=== PATIENT | male | born 1960 | race Caucasian/White ===

== ENCOUNTER 2016-09-09 20:06 | Emergency (ER) | payer MEDICARE, OTHER ==
[2016-09-09 20:16] VITALS: BP 164/99; PULSE 108; RESP 18; TEMP 98.4
[2016-09-09] MEDS ORDERED: SODIUM CHLORIDE 0.9% 500 ML IV STA (20:20)
[2016-09-09] MEDS ORDERED: RX INFO: IV CONTRAST WAS GIVEN 1 EACH MISC MISCELLANE PRN (20:21)
--- NOTE | 2016-09-09 20:42 | ED ---
General Adult HPI - General Chief complaint: Shortness of Breath Stated complaint: Coughing Up Blood x 2 days Hx PE Time Seen by Provider: 09/09/16 20:09 Source: patient, RN notes reviewed Mode of arrival: ambulatory Limitations: no limitations - History of Present Illness Initial comments: 56-year-old male presents emergency Department chief complaint hemoptysis. Patient states that he's been coughing up blood over the last 2 days. Patient states she's been sick for last 3-4 days. Patient states is concerned as he has a history of PE and he states he is currently taking warfarin. Patient states that he's had large globs of bright red blood. Patient states he has no pain associated. Patient denies any history of liver disease. Patient states he does occasionally have some shortness of breath. Patient has fever, chills, headache or dizziness. Denies any chest pain or palpitations. - Related Data Home Medications Medication Instructions Recorded Confirmed traMADol HCl [Ultram] 50 mg PO TID PRN 03/20/14 09/09/16 Warfarin Sodium [Coumadin] 6 mg PO DAILY 09/09/16 09/09/16 Previous Rx's Medication Instructions Recorded Azithromycin [Zithromax Z-pack] 0 mg PO DIRECTED #1 pack 09/09/16 Allergies Allergy/AdvReac Type Severity Reaction Status Date / Time codeine AdvReac Unknown Verified 09/09/16 20:23 Review of Systems ROS Statement: Those systems with pertinent positive or pertinent negative responses have been documented in the HPI. ROS Other: All systems not noted in ROS Statement are negative. Past Medical History Past Medical History: Deep Vein Thrombosis (DVT), Rheumatoid Arthritis (RA) Additional Past Medical History / Comment(s): PE History of Any Multi-Drug Resistant Organisms: None Reported Past Surgical History: No Surgical Hx Reported Past Psychological History: No Psychological Hx Reported Smoking Status: Current every day smoker Past Alcohol Use History: None Reported Past Drug Use History: Marijuana General Exam Limitations: no limitations General appearance: alert, in no apparent distress Head exam: Present: atraumatic, normocephalic, normal inspection Eye exam: Present: normal appearance, PERRL, EOMI. Absent: scleral icterus, conjunctival injection, periorbital swelling ENT exam: Present: normal exam, mucous membranes moist Neck exam: Present: normal inspection, full ROM. Absent: tenderness, meningismus, lymphadenopathy Respiratory exam: Present: normal lung sounds bilaterally. Absent: respiratory distress, wheezes, rales, rhonchi, stridor Cardiovascular Exam: Present: normal rhythm, tachycardia, normal heart sounds. Absent: systolic murmur, diastolic murmur, rubs, gallop, clicks GI/Abdominal exam: Present: soft, normal bowel sounds. Absent: distended, tenderness, guarding, rebound, rigid Course Vital Signs 09/09/16 20:14 Temperature 98.4 F Pulse Rate 108 H Respiratory 18 Rate Blood Pressure 164/99 O2 Sat by Pulse 99 Oximetry EKG Findings - EKG Comments: EKG Findings:: EKG performed at 21:49 normal sinus rhythm with sinus arrhythmia , rate of 73. Interval 136, QRS duration 70 QT/QTC 364/401 Medical Decision Making - Medical Decision Making 56-year-old male presented for hemoptysis. Patient had muscle episodes of large blood clots. I did update the patient lab results which showed INR 5.4. Patient also updated on CT results which shows left lower lobe pneumonia with mucous plug. I did recommend patient be admitted to the hospital for further monitoring, pulmonary evaluation. Patient refuses to stay. Patient was signing out AGAINST MEDICAL ADVICE. He will be given vitamin K, azithromycin prior discharge. Patient was advised to hold Coumadin and recheck with primary care physician in 24 hours. - Lab Data Result diagrams: 09/09/16 20:40 09/09/16 20:40 Lab Results 09/09/16 09/09/16 09/09/16 Range/Units 20:40 20:40 20:40 WBC 7.8 (3.8-10.6) k/uL RBC 4.86 (4.30-5.90) m/uL Hgb 15.0 (13.0-17.5) gm/dL Hct 43.8 (39.0-53.0) % MCV 90.1 (80.0-100.0) fL MCH 30.9 (25.0-35.0) pg MCHC 34.3 (31.0-37.0) g/dL RDW 13.2 (11.5-15.5) % Plt Count 242 (150-450) k/uL Neutrophils % 53 % Lymphocytes % 37 % Monocytes % 7 % Eosinophils % 2 % Basophils % 1 % Neutrophils # 4.1 (1.3-7.7) k/uL Lymphocytes # 2.9 (1.0-4.8) k/uL Monocytes # 0.5 (0-1.0) k/uL Eosinophils # 0.1 (0-0.7) k/uL Basophils # 0.1 (0-0.2) k/uL PT (9.0-12.0) sec INR (<1.1) APTT (22.0-30.0) sec Sodium 141 (137-145) mmol/L Potassium 3.8 (3.5-5.1) mmol/L Chloride 103 (98-107) mmol/L Carbon Dioxide 26 (22-30) mmol/L Anion Gap 12 mmol/L BUN 19 (9-20) mg/dL Creatinine 1.07 (0.66-1.25) mg/dL Est GFR (MDRD) Af Amer >60 (>60 ml/min/1.73 sqM) Est GFR (MDRD) Non-Af >60 (>60 ml/min/1.73 sqM) Glucose 138 H (74-99) mg/dL Calcium 9.5 (8.4-10.2) mg/dL Magnesium 1.9 (1.6-2.3) mg/dL Total Bilirubin 0.4 (0.2-1.3) mg/dL AST 21 (17-59) U/L ALT 24 (21-72) U/L Alkaline Phosphatase 104 (38-126) U/L Total Creatine Kinase 126 (55-170) U/L CK-MB (CK-2) 0.9 (0.0-2.4) ng/mL CK-MB (CK-2) Rel Index 0.7 Troponin I <0.012 (0.000-0.034) ng/mL Total Protein 7.2 (6.3-8.2) g/dL Albumin 4.2 (3.5-5.0) g/dL 09/09/16 Range/Units 20:40 WBC (3.8-10.6) k/uL RBC (4.30-5.90) m/uL Hgb (13.0-17.5) gm/dL Hct (39.0-53.0) % MCV (80.0-100.0) fL MCH (25.0-35.0) pg MCHC (31.0-37.0) g/dL RDW (11.5-15.5) % Plt Count (150-450) k/uL Neutrophils % % Lymphocytes % % Monocytes % % Eosinophils % % Basophils % % Neutrophils # (1.3-7.7) k/uL Lymphocytes # (1.0-4.8) k/uL Monocytes # (0-1.0) k/uL Eosinophils # (0-0.7) k/uL Basophils # (0-0.2) k/uL PT 57.7 H (9.0-12.0) sec INR 5.7 H* (<1.1) APTT 62.1 H (22.0-30.0) sec Sodium (137-145) mmol/L Potassium (3.5-5.1) mmol/L Chloride (98-107) mmol/L Carbon Dioxide (22-30) mmol/L Anion Gap mmol/L BUN (9-20) mg/dL Creatinine (0.66-1.25) mg/dL Est GFR (MDRD) Af Amer (>60 ml/min/1.73 sqM) Est GFR (MDRD) Non-Af (>60 ml/min/1.73 sqM) Glucose (74-99) mg/dL Calcium (8.4-10.2) mg/dL Magnesium (1.6-2.3) mg/dL Total Bilirubin (0.2-1.3) mg/dL AST (17-59) U/L ALT (21-72) U/L Alkaline Phosphatase (38-126) U/L Total Creatine Kinase (55-170) U/L CK-MB (CK-2) (0.0-2.4) ng/mL CK-MB (CK-2) Rel Index Troponin I (0.000-0.034) ng/mL Total Protein (6.3-8.2) g/dL Albumin (3.5-5.0) g/dL Disposition Clinical Impression: Pneumonia, Cough with hemoptysis Disposition: Left Against Medical Advice Condition: Stable Instructions: Hemoptysis (ED) Additional Instructions: Please return to the Emergency Department if symptoms worsen or any other concerns. Prescriptions: Azithromycin [Zithromax Z-pack] 0 mg PO DIRECTED #1 pack Time of Disposition: 22:54
[2016-09-09 20:52] LABS: Basophils # (A) 0.1 k/uL (0-0.2); Basophils % (A) 1 %; CH 31.6; CHCM 35.2; Eosinophils # (A) 0.1 k/uL (0-0.7); Eosinophils % (A) 2 %; HCT 43.8 % (39.0-53.0); HDW 2.59; Luc # (Auto) 0.15; Luc % (Auto) 2; Lymphocytes # (A) 2.9 k/uL (1.0-4.8); Lymphocytes % (A) 37 %; MCH 30.9 pg (25.0-35.0); MCHC 34.3 g/dL (31.0-37.0); MCV 90.1 fL (80.0-100.0); Mean Platelet Volume 8.2; Monocytes # (A) 0.5 k/uL (0-1.0); Monocytes % (A) 7 %; Neutrophils # (A) 4.1 k/uL (1.3-7.7); Neutrophils % (A) 53 %; RBC 4.86 m/uL (4.30-5.90); RDW 13.2 % (11.5-15.5); WBC 7.8 k/uL (3.8-10.6); WBC (Perox) 7.85
[2016-09-09 21:04] LABS: Prothrombin Time 57.7 sec (9.0-12.0)
[2016-09-09 21:06] LABS: Creatine Kinase 126 U/L (55-170)
[2016-09-09 21:08] LABS: INR 5.7 (<1.1); Partial Thromboplastin Time 62.1 sec (22.0-30.0)
[2016-09-09 21:17] LABS: ALT 24 U/L (21-72); AST 21 U/L (17-59); Alkaline Phosphatase 104 U/L (38-126); Anion Gap 12 mmol/L; Blood Urea Nitrogen 19 mg/dL (9-20); Calcium 9.5 mg/dL (8.4-10.2); Carbon Dioxide 26 mmol/L (22-30); Chloride 103 mmol/L (98-107); Glucose 138 mg/dL (74-99); Magnesium 1.9 mg/dL (1.6-2.3); Non-African American GFR(MDRD) >60 (>60 ml/min/1.73 sqM); Potassium 3.8 mmol/L (3.5-5.1); Sodium 141 mmol/L (137-145); Total Bilirubin 0.4 mg/dL (0.2-1.3); Total Protein 7.2 g/dL (6.3-8.2)
[2016-09-09 21:19] LABS: Creatine Kinase MB 0.9 ng/mL (0.0-2.4); Troponin I <0.012 ng/mL (0.000-0.034)
--- NOTE | 2016-09-09 21:21 | XR ---
EXAMINATION TYPE: XR chest 2V DATE OF EXAM: 09/09/2016 8:53 PM COMPARISON: 06/09/2013 HISTORY: Hemoptysis with dyspnea TECHNIQUE: Frontal and lateral views of the chest are obtained. FINDINGS: The lungs are predominantly clear and well expanded bilaterally. When comparison is made w ith a 2012 study, the lateral view shows increased density in the infrahilar position posteriorly. Th e left hilum is also a bit more full than the prior study, the this is a subtle difference. Notwithst anding, given the hemoptysis and that the relative lack of radiographic findings, further characteriz ation with CT is suggested. The pleural spaces are negative. The cardiac silhouette is not enlarged. Bones and soft tissues are u nremarkable. IMPRESSION: NO DEFINITE ACUTE PROCESS. HOWEVER, THE LATERAL VIEW SHOWS MARKED PROMINENT INFRAHILAR ATTENUATION PO STERIORLY. THEREFORE, WOULD SUGGEST NONURGENT CONTRAST CT CHEST CHARACTERIZATION.
--- NOTE | 2016-09-09 22:18 | CT ---
EXAMINATION TYPE: CT angio chest DATE OF EXAM: 09/09/2016 9:29 PM COMPARISON: NONE HISTORY: Shortness of breath with hemoptysis and history of pulmonary embolism CT DLP: 258.9 mGycm Automated exposure control for dose reduction was used. CONTRAST: CTA scan of the thorax is performed with IV Contrast, patient injected with 100 mL of Omnipaque 350, pulmonary embolism protocol. MIP images are created and reviewed. 3D reconstructed images are creat ed on an independent workstation and reviewed. FINDINGS: Thoracic aorta appears intact with no sign of aneurysm or dissection. There is no mediastinal adenopa thy. There are no hilar masses. Heart size is normal. There is no pericardial effusion. I see no filling defects in the pulmonary arteries. There is a mild reticular infiltrate posterior to the right pulmonary hilum. There is some bronchial thickening and mucous in the right lower lobe. Th ere is no pleural effusion. The bony thorax appears intact. IMPRESSION: NO EVIDENCE OF PULMONARY EMBOLISM. MILD INFILTRATE WITH MUCOUS PLUGGING AND BRONCHIAL WALL THICKENING IN THE RIGHT LOWER LOBE
[2016-09-09] MEDS ORDERED: PHYTONADIONE ORAL 5 MG/5 ML ORAL.SYRG PO STA (22:37)
[2016-09-09] MEDS ORDERED: AZITHROMYCIN 250 MG TAB PO STA (22:54)
== END 2016-09-09 23:13 | disposition left against medical advice (07) ==
LOC: EC 20:06
DX: J18.9 Pneumonia, unspecified organism (principal); R04.2 Hemoptysis; T17.890A Other foreign object in other parts of respiratory tract causing asphyxiation, initial encounter; F17.200 Nicotine dependence, unspecified, uncomplicated; Z88.5 Allergy status to narcotic agent; Z79.01 Long term (current) use of anticoagulants; Z86.718 Personal history of other venous thrombosis and embolism
CPT/HCPCS: 99285; 36415; 93005; 80053; 82550; 82553; 83735; 84484; 85025; 85610; 85730; 71020; 71275; Q9967

== ENCOUNTER 2023-02-09 12:21 | Emergency (ER) | payer MEDICARE ==
[2023-02-09 12:50] VITALS: BP 115/76; PULSE 86; RESP 18; TEMP 98.2
--- NOTE | 2023-02-09 14:36 | ED ---
General Adult HPI - General Chief complaint: Recheck/Abnormal Lab/Rx Stated complaint: Feed Tube Issues - fall out Time Seen by Provider: 02/09/23 12:53 Source: patient, family, RN notes reviewed Mode of arrival: wheelchair Limitations: no limitations - History of Present Illness Initial comments: 62-year-old male presents emergency Department with chief complaint of needing feeding tubes in place. Patient states that his feeding tube for the night. Patient states his fourth emesis happened. Patient states he is followed by [facility] for his esophageal cancer. He states that he does not have a PEG tube. Denies any other associated complaints. - Related Data Home Medications Medication Instructions Recorded Confirmed traMADol HCl [Ultram] 50 mg PO TID PRN 03/20/14 09/09/16 Warfarin Sodium [Coumadin] 6 mg PO DAILY 09/09/16 09/09/16 Previous Rx's Medication Instructions Recorded Azithromycin [Zithromax Z-pack (6 0 mg PO DIRECTED #1 pack 09/09/16 tabs)] Allergies Allergy/AdvReac Type Severity Reaction Status Date / Time codeine AdvReac Unknown Verified 02/09/23 12:50 Review of Systems ROS Statement: Those systems with pertinent positive or pertinent negative responses have been documented in the HPI. ROS Other: All systems not noted in ROS Statement are negative. Past Medical History Past Medical History: Deep Vein Thrombosis (DVT), Rheumatoid Arthritis (RA) Additional Past Medical History / Comment(s): PE. Canbcer head and neck, pt recieving chemo and radiation History of Any Multi-Drug Resistant Organisms: None Reported Past Surgical History: No Surgical Hx Reported Past Psychological History: No Psychological Hx Reported Smoking Status: Former smoker Past Alcohol Use History: None Reported Past Drug Use History: Marijuana General Exam General appearance: alert, in no apparent distress Head exam: Present: atraumatic, normocephalic, normal inspection Eye exam: Present: normal appearance, PERRL, EOMI. Absent: scleral icterus, conjunctival injection, periorbital swelling Respiratory exam: Present: normal lung sounds bilaterally. Absent: respiratory distress, wheezes, rales, rhonchi, stridor Cardiovascular Exam: Present: regular rate, normal rhythm, normal heart sounds. Absent: systolic murmur, diastolic murmur, rubs, gallop, clicks GI/Abdominal exam: Present: soft, normal bowel sounds. Absent: distended, tenderness, guarding, rebound, rigid Course Vital Signs 02/09/23 02/09/23 12:45 15:31 Temperature 98.2 F Pulse Rate 86 Respiratory 18 18 Rate Blood Pressure 115/76 O2 Sat by Pulse 97 Oximetry Medical Decision Making - Medical Decision Making Was pt. sent in by a medical professional or institution (KALE Espinoza, HOG TRADER, urgent care, hospital, or prison...) When possible be specific @ -No Did you speak to anyone other than the patient for history (EMS, parent, family, police, friend...)? What history was obtained from this source @ -No Did you review nursing and triage notes (agree or disagree)? Why? @ -I reviewed and agree with nursing and triage notes Were old charts reviewed (outside hosp., previous admission, EMS record, old EKG, old radiological studies, urgent care reports/EKG's, prison records)? Report findings @ -No old charts were reviewed Differential Diagnosis (chest pain, altered mental status, abdominal pain women, abdominal pain men, vaginal bleeding, weakness, fever, dyspnea, syncope, headache, dizziness, GI bleed, back pain, seizure, CVA, palpatations, mental health, musculoskeletal)? @ -Feeding tube displacement EKG interpreted by me (3pts min.). @ -As above X-rays interpreted by me (1pt min.). @ -X-ray shows intact feeding tube in correct position CT interpreted by me (1pt min.). @ -None done U/S interpreted by me (1pt. min.). @ -None done What testing was considered but not performed or refused? (CT, X-rays, U/S, labs)? Why? @ -None What meds were considered but not given or refused? Why? @ -None Did you discuss the management of the patient with other professionals (professionals i.e. KALE Espinoza, HOG TRADER, lab, RT, psych nurse, hospice social worker, perinatal instructor, teacher, correctional officer lieutenant, caseworker intake)? Give summary @ -[Discussed the case with oncologist at [facility] stating that he can have. doboff with weighted and that is different than his current feeding tube. Was smoking cessation discussed for >3mins.? @ -No Was critical care preformed (if so, how long)? @ -No Were there social determinants of health that impacted care today? How? (Homelessness, low income, unemployed, alcoholism, drug addiction, cruz sportation, low edu. Level, literacy, decrease access to med. care, fdc, rehab)? @ -No Was there de-escalation of care discussed even if they declined (Discuss DNR or withdrawal of care, Hospice)? DNR status @ -No What co-morbidities impacted this encounter? (DM, HTN, Smoking, COPD, CAD, Cancer, CVA, ARF, Chemo, Hep., AIDS, mental health diagnosis, sleep apnea, morbid obesity)? @ -None Was patient admitted / discharged? Hospital course, mention meds given and route, prescriptions, significant lab abnormalities, going to OR and other pertinent info. @ -Discharge feeding tube was placed by RN from ICU confirmed placement on x- ray patient discharged in stable condition Undiagnosed new problem with uncertain prognosis? @ -No Drug Therapy requiring intensive monitoring for toxicity (Heparin, Nitro, Ins ulin, Cardizem)? @ -No Were any procedures done? @ -No Diagnosis/symptom? @ -Feeding tube placement Acute, or Chronic, or Acute on Chronic? @ -Acute Uncomplicated (without systemic symptoms) or Complicated (systemic symptoms)? @ -Uncomplicated Side effects of treatment? @ -No Exacerbation, Progression, or Severe Exacerbation? @ -No Poses a threat to life or bodily function? How? (Chest pain, [place], [place], pneumonia, PE, COPD, DKA, ARF, appy, cholecystitis, CVA, Diverticulitis, Homicidal, Suicidal, threat to staff... and all critical care pts) @ -No Disposition Clinical Impression: Encounter for feeding tube placement Disposition: HOME SELF-CARE Condition: Stable Additional Instructions: [facility] [phone] Prescribed his home tube feedings by Dr David Lane, phone:[phone] Is patient prescribed a controlled substance at d/c from ED?: No Referrals: Dandre Roger MD [Primary Care Provider] - 1-2 days Time of Disposition: 16:01
--- NOTE | 2023-02-09 16:03 | XR ---
EXAMINATION TYPE: XR chest 1V portable DATE OF EXAM: 02/09/2023 HISTORY: Shortness of breath. COMPARISON: 09/09/2016 TECHNIQUE: Single view of the chest is submitted. FINDINGS: Demonstrated are scattered senescent parenchymal change. NG tube is seen coursing into the stomach. There is no evidence for focal infiltrate. The heart is stable. Hilar and mediastinal structures are within normal limits. Degenerative changes are seen of the dorsal spine. IMPRESSION: 1. Chronic changes without evidence for acute pulmonary disease.
== END 2023-02-09 16:10 | disposition home or self-care (01) ==
LOC: EC 12:21
DX: Z46.59 Encounter for fitting and adjustment of other gastrointestinal appliance and device (principal); F12.90 Cannabis use, unspecified, uncomplicated; Z87.891 Personal history of nicotine dependence; Z88.5 Allergy status to narcotic agent
CPT/HCPCS: 71045; 99283

== ENCOUNTER 2023-03-14 13:34 | Emergency (ER) | payer MEDICARE ==
[2023-03-14 14:25] VITALS: BP 109/70; PULSE 86; RESP 18; TEMP 98.1
--- NOTE | 2023-03-14 15:21 | ED ---
General Adult HPI - General Chief complaint: Recheck/Abnormal Lab/Rx Stated complaint: feeding tube replacement Time Seen by Provider: 03/14/23 15:09 Source: patient, RN notes reviewed Mode of arrival: ambulatory Limitations: no limitations - History of Present Illness Initial comments: 62-year-old male presents to the emergency department for chief complaint of feeding tube replacement. Patient states that he is being treated for head and neck cancer at [facility] and has an NG tube. He states he was straining earlier today and the tube came out. He states that NG tube that he has has a camera at the end. He reports it was initially placed at [facility] but was replaced here last month when it came out. Past medical history includes neck malignancy, aortic aneurysm. - Related Data Home Medications Medication Instructions Recorded Confirmed traMADol HCl [Ultram] 50 mg PO TID PRN 03/20/14 09/09/16 Warfarin Sodium [Coumadin] 6 mg PO DAILY 09/09/16 09/09/16 Previous Rx's Medication Instructions Recorded Azithromycin [Zithromax Z-pack (6 0 mg PO DIRECTED #1 pack 09/09/16 tabs)] Allergies Allergy/AdvReac Type Severity Reaction Status Date / Time codeine AdvReac Unknown Verified 03/14/23 14:25 Review of Systems ROS Statement: Those systems with pertinent positive or pertinent negative responses have been documented in the HPI. ROS Other: All systems not noted in ROS Statement are negative. Past Medical History Past Medical History: Deep Vein Thrombosis (DVT), Rheumatoid Arthritis (RA) Additional Past Medical History / Comment(s): PE. Canbcer head and neck, pt recieving chemo and radiation History of Any Multi-Drug Resistant Organisms: None Reported Past Surgical History: No Surgical Hx Reported Past Psychological History: No Psychological Hx Reported Smoking Status: Former smoker Past Alcohol Use History: None Reported Past Drug Use History: Marijuana General Exam Limitations: no limitations General appearance: alert, in no apparent distress Head exam: Present: atraumatic, normocephalic, normal inspection Eye exam: Present: normal appearance ENT exam: Present: normal exam, mucous membranes moist Neck exam: Present: normal inspection. Absent: tenderness, meningismus, lymphadenopathy Respiratory exam: Present: normal lung sounds bilaterally. Absent: respiratory distress, wheezes, rales, rhonchi, stridor Cardiovascular Exam: Present: regular rate, normal rhythm, normal heart sounds. Absent: systolic murmur, diastolic murmur, rubs, gallop, clicks GI/Abdominal exam: Present: soft, normal bowel sounds. Absent: distended, tenderness, guarding, rebound, rigid Extremities exam: Present: normal inspection, full ROM, normal capillary refill. Absent: tenderness, pedal edema, joint swelling, calf tenderness Back exam: Present: normal inspection Neurological exam: Present: alert, oriented X3 Psychiatric exam: Present: normal affect, normal mood Skin exam: Present: warm, dry, intact, normal color. Absent: rash Course Vital Signs 03/14/23 14:21 Temperature 98.1 F Pulse Rate 86 Respiratory 18 Rate Blood Pressure 109/70 O2 Sat by Pulse 98 Oximetry Medical Decision Making - Medical Decision Making Was pt. sent in by a medical professional or institution (, PA, COMIC BOOK ARTIST, urgent care, hospital, or jail...) When possible be specific @ -No Did you speak to anyone other than the patient for history (EMS, parent, family, police, friend...)? What history was obtained from this source @ -No Did you review nursing and triage notes (agree or disagree)? Why? @ -I reviewed and agree with nursing and triage notes Were old charts reviewed (outside hosp., previous admission, EMS record, old EKG, old radiological studies, urgent care reports/EKG's, jail records)? Report findings @ -No old charts were reviewed Differential Diagnosis (chest pain, altered mental status, abdominal pain women, abdominal pain men, vaginal bleeding, weakness, fever, dyspnea, syncope, headache, dizziness, GI bleed, back pain, seizure, CVA, palpatations, mental health, musculoskeletal)? @ -not applicable EKG interpreted by me (3pts min.). @ -none X-rays interpreted by me (1pt min.). @ -chest XR @1823 showed NG tube coiled up within the esophagus @1916 showed NG tube with side port near distal esophagus @2021 showed NG tube in appropriate position CT interpreted by me (1pt min.). @ -None done U/S interpreted by me (1pt. min.). @ -None done What testing was considered but not performed or refused? (CT, X-rays, U/S, labs)? Why? @ -None What meds were considered but not given or refused? Why? @ -None Did you discuss the management of the patient with other professionals (professionals i.e. DrShar, PA, COMIC BOOK ARTIST, lab, RT, psych nurse, clinical social worker, logistics coordinator, teacher, air defence officer, nurse outreach case manager)? Give summary @ -No Was smoking cessation discussed for >3mins.? @ -No Was critical care preformed (if so, how long)? @ -No Were there social determinants of health that impacted care today? How? (Homelessness, low income, unemployed, alcoholism, drug addiction, transportation, low edu. Level, literacy, decrease access to med. care, shelter, rehab)? @ -No Was there de-escalation of care discussed even if they declined (Discuss DNR or withdrawal of care, Hospice)? DNR status @ -No What co-morbidities impacted this encounter? (DM, HTN, Smoking, COPD, CAD, Cancer, CVA, ARF, Chemo, Hep., AIDS, mental health diagnosis, sleep apnea, morbid obesity)? @ -None Was patient admitted / discharged? Hospital course, mention meds given and route, prescriptions, significant lab abnormalities, going to OR and other pertinent info. @ -Discharge. Patient presents emergency department chief complaint of NG tube displaced. He states that this happened to him before and he came in for a replacement. He follows with [facility] for oncology and that is where the NG tube was originally placed. An NG tube was replaced. Initially it was in the wrong position confirmed by XR, NG tube was pulled and replaced. Confirmatory x-ray was performed and showed NG tube was still not improper positioning. The NG tube was advanced and confirmed to that it was in the appropriate position on a third x-ray. Patient advised that this is temporary and he needs to follow up with [facility] for further treatment. Patient stable at time of discharge. Case discussed with my attending, Dr. Uriarte Undiagnosed new problem with uncertain prognosis? @ -No Drug Therapy requiring intensive monitoring for toxicity (Heparin, Nitro, Insulin, Cardizem)? @ -No Were any procedures done? @ -No Diagnosis/symptom? @ -NG tube replacement Acute, or Chronic, or Acute on Chronic? @ -Acute Uncomplicated (without systemic symptoms) or Complicated (systemic symptoms)? @ -Uncomplicated Side effects of treatment? @ -No Exacerbation, Progression, or Severe Exacerbation? @ -No Poses a threat to life or bodily function? How? (Chest pain, [place], [place], pneumonia, PE, COPD, DKA, ARF, appy, cholecystitis, CVA, Diverticulitis, Homicidal, Suicidal, threat to staff... and all critical care pts) @ -No Disposition Clinical Impression: Encounter for nasogastric (NG) tube placement Disposition: HOME SELF-CARE Condition: Stable Instructions (If sedation given, give patient instructions): Nasogastric Tube (DC) Additional Instructions: Please follow up at the [facility] for replacement to appropriate tube. Return to the emergency department for new or worsening symptoms. Is patient prescribed a controlled substance at d/c from ED?: No Referrals: Dandre Roger MD [Primary Care Provider] - 1-2 days Time of Disposition: 20:28
--- NOTE | 2023-03-14 18:27 | XR ---
EXAMINATION TYPE: XR chest 1V DATE OF EXAM: 03/14/2023 5:43 PM COMPARISON: Chest radiographs from 02/09/2023. TECHNIQUE: XR chest 1V Frontal view of the chest. CLINICAL INDICATION:Male, 62 years old with history of ng tube placement; FINDINGS: Lungs/Pleura: There is no evidence of pleural effusion, focal consolidation, or pneumothorax. Pulmonary vascularity: Unremarkable. Heart/mediastinum: Cardiomediastinal silhouette is unremarkable. Musculoskeletal: No acute osseous pathology. Other findings: None Lines/Tubes: The nasogastric tube is coiled up with 180 degree turn in the distal esophagus. IMPRESSION: 1. Nasogastric tube coiled up within the esophagus. Removal and replacement is recommended. 2. COPD changes.
--- NOTE | 2023-03-14 19:21 | XR ---
EXAMINATION TYPE: XR chest 1V confirm line plcmt DATE OF EXAM: 03/14/2023 7:00 PM COMPARISON: Chest radiographs from 03/14/2023 TECHNIQUE: XR chest 1V confirm line plcmt Frontal view of the chest. CLINICAL INDICATION:Male, 62 years old with history of placement; FINDINGS: Lungs/Pleura: There is no evidence of pleural effusion, focal consolidation, or pneumothorax. Pulmonary vascularity: Unremarkable. Heart/mediastinum: Cardiomediastinal silhouette is unremarkable. Musculoskeletal: No acute osseous pathology. Other findings: None Lines/Tubes: Interval replacement of Nasogastric tube, now with side-port near the distal esophagus. IMPRESSION: Nasogastric tube with side-port near the distal esophagus. Consider advancement of centimeters for op timal placement.
--- NOTE | 2023-03-14 20:25 | XR ---
EXAMINATION TYPE: XR chest 1V confirm line plcmt DATE OF EXAM: 03/14/2023 8:13 PM COMPARISON: Same day radiographs TECHNIQUE: XR chest 1V confirm line plcmt Frontal view of the chest. CLINICAL INDICATION:Male, 62 years old with history of NG tube placement; FINDINGS: Lungs/Pleura: There is no evidence of pleural effusion, focal consolidation, or pneumothorax. Pulmonary vascularity: Unremarkable. Heart/mediastinum: Cardiomediastinal silhouette is unremarkable. Musculoskeletal: No acute osseous pathology. Other findings: None Lines/Tubes: Nasogastric tube with its distal tip and side-port projecting under the diaphragm and projecting over the gastric lumen. IMPRESSION: 1. Nasogastric tube in appropriate position. 2. No acute cardiopulmonary disease/process.
== END 2023-03-14 20:51 | disposition home or self-care (01) ==
LOC: EC 13:34
DX: Z46.59 Encounter for fitting and adjustment of other gastrointestinal appliance and device (principal); F12.90 Cannabis use, unspecified, uncomplicated; Z87.891 Personal history of nicotine dependence; Z88.6 Allergy status to analgesic agent
CPT/HCPCS: 71045; 99283